=== PATIENT | male | born 1975 | race African-American/Black ===

== ENCOUNTER → 2018-01-04 | Outpatient (CLI) | payer BC ==
[2018-01-04 14:23] LABS: Basophils # (auto) 0 uL; Basophils % (auto) 0.3 % (0.0-2.0); Eosinophils # (auto) 0.1 uL; Eosinophils % (auto) 1.8 % (0.0-7.0); Hematocrit 48.9 % (41.0-53.0); Hemoglobin 15.7 g/dL (13.5-17.5); Lymphocytes # (auto) 2.2 uL; Lymphocytes % (auto) 42.1 % (10.0-50.0); Mean Corpuscular Hemoglobin 29.9 pg (28.0-32.0); Mean Corpuscular Hgb Conc. 32.2 g/dL (32.0-36.0); Mean Corpuscular Volume 92.7 fL (80.0-100.0); Monocytes # (auto) 0.3 uL; Monocytes % (auto) 6.3 % (0.0-12.0); Neutrophils # (auto) 2.6 uL; Neutrophils % (auto) 49.5 % (37.0-80.0); Platelet Count (auto) 151 10^3/uL (140-450); Red Blood Cells 5.27 10^6/uL (4.5-5.90); Red Cell Distribution Width 13.5 % (11.8-14.3); White Blood Cell 5.2 10^3/uL (4.4-10.8)
[2018-01-04 14:32] LABS: Urine Bacteria NONE SEEN /hpf (None Seen); Urine Blood Negative /uL (Negative); Urine Mucus FEW (None Seen); Urine Specific Gravity 1.027 (1.001-1.035); Urine WBC 1 /hpf (0 - 3)
[2018-01-04 15:06] LABS: Potassium 3.7 mmol/L (3.5-5.1)
[2018-01-04 15:18] LABS: Albumin 3.8 g/dL (3.4-5.0); BUN/Creatinine Ratio 10.6; Bilirubin, Total 0.5 mg/dL (0.2-1.0); Total Protein 8.2 g/dL (6.4-8.2)
== END | disposition home or self-care (01) ==
LOC: LAB 13:32
PROVIDERS: ATTEND Family Medicine
DX: Z00.01 Encounter for general adult medical examination with abnormal findings (principal); I10 Essential (primary) hypertension; I25.10 Atherosclerotic heart disease of native coronary artery without angina pectoris; E66.01 Morbid (severe) obesity due to excess calories; R73.09 Other abnormal glucose
CPT/HCPCS: 36415; 80053; 80061; 81001; 83036; 84443; 85025

== ENCOUNTER → 2018-06-01 | Outpatient (CLI) | payer BC ==
[2018-06-01 10:17] LABS: Albumin 3.8 g/dL (3.4-5.0); Bilirubin, Direct 0.2 mg/dL (0-0.2); Bilirubin, Total 0.6 mg/dL (0.2-1.0); Total Protein 7.7 g/dL (6.4-8.2)
== END | disposition home or self-care (01) ==
LOC: LAB 09:05
PROVIDERS: ATTEND Family Medicine
DX: E78.00 Pure hypercholesterolemia, unspecified (principal)
CPT/HCPCS: 36415; 80061; 80076

== ENCOUNTER → 2018-06-16 | Outpatient (CLI) | payer BC ==
[2018-06-17 06:11] LABS: RPR Non Reactive (Non Reactive)
== END | disposition home or self-care (01) ==
LOC: LAB 10:54
PROVIDERS: ATTEND Physician Assistant
DX: Z11.3 Encounter for screening for infections with a predominantly sexual mode of transmission (principal); Z72.89 Other problems related to lifestyle
CPT/HCPCS: 36415; 86592; 86703; 86704; 86706; 86708; 86803; 87340

== ENCOUNTER → 2019-03-14 | Outpatient (CLI) | payer BC ==
[2019-03-14 12:35] LABS: Albumin 3.6 g/dL (3.4-5.0); Calcium 9.1 mg/dL (8.5-10.1); Potassium 3.6 mmol/L (3.5-5.1)
[2019-03-14 12:39] LABS: BUN/Creatinine Ratio 8.8; Bilirubin, Total 0.7 mg/dL (0.2-1.0); Total Protein 7.5 g/dL (6.4-8.2)
== END | disposition home or self-care (01) ==
LOC: LAB 11:56
PROVIDERS: ATTEND Family Medicine
DX: E78.00 Pure hypercholesterolemia, unspecified (principal)
CPT/HCPCS: 36415; 80053; 80061

== ENCOUNTER → 2019-07-13 | Outpatient (CLI) | payer BC ==
[2019-07-13 12:30] LABS: Albumin 3.8 g/dL (3.4-5.0); Bilirubin, Direct 0.2 mg/dL (0-0.2); Bilirubin, Total 0.7 mg/dL (0.2-1.0)
== END | disposition home or self-care (01) ==
LOC: LAB 11:17
PROVIDERS: ATTEND Family Medicine
DX: E78.00 Pure hypercholesterolemia, unspecified (principal); R31.0 Gross hematuria
CPT/HCPCS: 36415; 80061; 80076; 84153

== ENCOUNTER → 2019-11-28 | Outpatient (CLI) | payer BC ==
[2019-11-28 13:40] LABS: Basophils # (auto) 0 10 ^3/uL (0-0.2); Basophils % (auto) 0.4 % (0.0-2.0); Eosinophils # (auto) 0.1 10 ^3/uL (0-0.8); Eosinophils % (auto) 2.3 % (0.0-7.0); Hematocrit 47.3 % (41.0-53.0); Hemoglobin 16.2 g/dL (13.5-17.5); Lymphocytes # (auto) 1.7 10 ^3/uL (0.4-5.4); Lymphocytes % (auto) 38.3 % (10.0-50.0); Mean Corpuscular Hemoglobin 31.2 pg (28.0-32.0); Mean Corpuscular Hgb Conc. 34.2 g/dL (32.0-36.0); Mean Corpuscular Volume 91.4 fL (80.0-100.0); Monocytes # (auto) 0.3 10 ^3/uL (0-1.3); Monocytes % (auto) 7.2 % (0.0-12.0); Neutrophils # (auto) 2.4 10 ^3/uL (1.6-8.6); Neutrophils % (auto) 51.8 % (37.0-80.0); Platelet Count (auto) 168 10^3/uL (140-450); Red Blood Cells 5.18 10^6/uL (4.5-5.90); Red Cell Distribution Width 13.1 % (11.8-14.3); White Blood Cell 4.5 10^3/uL (4.4-10.8)
[2019-11-28 13:42] LABS: Urine Bacteria NONE SEEN /hpf (None Seen); Urine Blood Negative /uL (Negative); Urine Mucus FEW (None Seen); Urine Specific Gravity 1.028 (1.001-1.035); Urine WBC 1 /hpf (0 - 3)
[2019-11-28 14:31] LABS: Albumin 4.2 g/dL (3.4-5.0); Calcium 9.2 mg/dL (8.5-10.1); Potassium 3.7 mmol/L (3.5-5.1)
[2019-11-28 14:38] LABS: BUN/Creatinine Ratio 9.8; Bilirubin, Total 0.8 mg/dL (0.2-1.0); Total Protein 7.9 g/dL (6.4-8.2)
== END | disposition home or self-care (01) ==
LOC: LAB 13:24
PROVIDERS: ATTEND Family Medicine
DX: E78.2 Mixed hyperlipidemia (principal); R79.89 Other specified abnormal findings of blood chemistry; E66.9 Obesity, unspecified
CPT/HCPCS: 36415; 80053; 80061; 81001; 84443; 85025

== ENCOUNTER → 2020-05-15 | Outpatient (CLI) | payer BC | END | disposition home or self-care (01) | LOC: LAB 09:47 | PROVIDERS: ATTEND Nurse Practitioner Family | DX: Z11.3 Encounter for screening for infections with a predominantly sexual mode of transmission (principal); N39.0 Urinary tract infection, site not specified | CPT/HCPCS: 87086 ==

== ENCOUNTER → 2020-06-18 | Outpatient (CLI) | payer BC ==
[2020-06-19 06:06] LABS: RPR Non Reactive (Non Reactive)
== END | disposition home or self-care (01) ==
LOC: LAB 17:27
PROVIDERS: ATTEND Nurse Practitioner Family
DX: Z11.3 Encounter for screening for infections with a predominantly sexual mode of transmission (principal); N39.0 Urinary tract infection, site not specified
CPT/HCPCS: 86592; 86695; 86696

== ENCOUNTER 2020-09-06 09:14 | Emergency (ER) | payer BC ==
[~2020-09-06] VITALS: Ht 177.8 cm; Wt 122.5 kg
[2020-09-06] MEDS ORDERED: ASPirin 81 mg TAB PO ONE (10:15)
[2020-09-06 10:50] LABS: Basophils # (auto) 0 10 ^3/uL (0-0.2); Basophils % (auto) 0.5 % (0.0-2.0); Eosinophils # (auto) 0.1 10 ^3/uL (0-0.8); Eosinophils % (auto) 1.7 % (0.0-7.0); Hematocrit 45.2 % (41.0-53.0); Hemoglobin 15.4 g/dL (13.5-17.5); Lymphocytes # (auto) 1.7 10 ^3/uL (0.4-5.4); Lymphocytes % (auto) 37.9 % (10.0-50.0); Mean Corpuscular Hemoglobin 30.9 pg (28.0-32.0); Mean Corpuscular Volume 91.1 fL (80.0-100.0); Monocytes # (auto) 0.4 10 ^3/uL (0-1.3); Monocytes % (auto) 8.1 % (0.0-12.0); Neutrophils # (auto) 2.3 10 ^3/uL (1.6-8.6); Neutrophils % (auto) 51.8 % (37.0-80.0); Nucleated Red Blood Cells % 0.2 %; Platelet Count (auto) 155 10^3/uL (140-450); Red Blood Cells 4.97 10^6/uL (4.5-5.90); Red Cell Distribution Width 12.9 % (11.8-14.3); White Blood Cell 4.4 10^3/uL (4.4-10.8)
[2020-09-06 10:59] LABS: Albumin 3.9 g/dL (3.4-5.0); Anion Gap 4 (5-15); Blood Urea Nitrogen 9 mg/dL (7-18); Calcium 8.6 mg/dL (8.5-10.1); Carbon Dioxide 27 mmol/L (21-32); Chloride 112 mmol/L (98-107); Glucose 89 mg/dL (74-106); Sodium 143 mmol/L (136-145)
[2020-09-06 11:04] LABS: Alanine Aminotransferase 41 U/L (16-61); Alkaline Phosphatase 75 U/L (45-117); Aspartate Aminotransferase 27 U/L (15-37); Bilirubin, Total 0.7 mg/dL (0.2-1.0); GFR African American 91 mL/min; GFR Non-African American 75 mL/min; Total Protein 7.5 g/dL (6.4-8.2)
[2020-09-06 11:47] VITALS: BP 130/82
== END 2020-09-06 11:49 | disposition home or self-care (01) ==
LOC: ER 09:14
DX: R07.89 Other chest pain (principal); F41.9 Anxiety disorder, unspecified; F17.210 Nicotine dependence, cigarettes, uncomplicated
CPT/HCPCS: 36415; 71046; 80053; 84484; 85025; 85049; 93005

== ENCOUNTER → 2022-10-07 | Outpatient (CLI) | payer BC ==
[2022-10-07 11:40] LABS: Basophils # (auto) 0 10 ^3/uL (0-0.2); Basophils % (auto) 0.3 % (0.0-2.0); Eosinophils # (auto) 0.1 10 ^3/uL (0-0.8); Eosinophils % (auto) 2.1 % (0.0-7.0); Hematocrit 46.5 % (41.0-53.0); Hemoglobin 15.3 g/dL (13.5-17.5); Lymphocytes # (auto) 2.3 10 ^3/uL (0.4-5.4); Lymphocytes % (auto) 44.6 % (10.0-50.0); Mean Corpuscular Hemoglobin 30.9 pg (28.0-32.0); Mean Corpuscular Volume 93.8 fL (80.0-100.0); Monocytes # (auto) 0.5 10 ^3/uL (0-1.3); Monocytes % (auto) 9.1 % (0.0-12.0); Neutrophils # (auto) 2.2 10 ^3/uL (1.6-8.6); Neutrophils % (auto) 43.9 % (37.0-80.0); Nucleated Red Blood Cells % 0.2 %; Red Blood Cells 4.96 10^6/uL (4.5-5.90); Red Cell Distribution Width 13.5 % (11.8-14.3)
[2022-10-07 11:59] LABS: Urine Bacteria FEW /hpf (None Seen); Urine Blood Negative /uL (Negative); Urine Clarity Clear (Clear); Urine Color Yellow (Yellow); Urine Mucus FEW (None Seen); Urine Protein, UAD TRACE (Negative); Urine Urobilinogen Normal (Negative); Urine WBC <1 /hpf (0 - 3)
[2022-10-07 12:20] LABS: Albumin 3.8 g/dL (3.4-5.0); Calcium 8.7 mg/dL (8.5-10.1); Potassium 3.6 mmol/L (3.5-5.1)
[2022-10-07 12:23] LABS: Free T4 (Free Thyroxine) 1.15 ng/dL (0.89-1.76); Prostate Specific Antigen 2.29 ng/mL (0.0-4.0)
[2022-10-07 12:28] LABS: BUN/Creatinine Ratio 10.7 (10.0-20.0); Bilirubin, Total 0.8 mg/dL (0.2-1.0); Total Protein 7.7 g/dL (6.4-8.2)
[2022-10-07 13:25] LABS: Erythrocyte Sedimentation Rate 1 mm/hr (0-20)
== END | disposition home or self-care (01) ==
LOC: LAB 10:26
PROVIDERS: ATTEND Internal Medicine
DX: R07.9 Chest pain, unspecified (principal); N39.0 Urinary tract infection, site not specified; N39.9 Disorder of urinary system, unspecified
CPT/HCPCS: 36415; 80053; 80061; 81001; 84153; 84439; 84443; 85025; 85652

== ENCOUNTER → 2022-10-27 | Outpatient (CLI) | payer BC | END | disposition home or self-care (01) | LOC: XYW 10:03 | PROVIDERS: ATTEND Student in an Organized Health Care Education/Training Program | DX: I35.1 Nonrheumatic aortic (valve) insufficiency (principal); R94.31 Abnormal electrocardiogram [ECG] [EKG] | CPT/HCPCS: 93306 ==

== ENCOUNTER → 2022-11-12 | Outpatient (CLI) | payer BC | END | disposition home or self-care (01) | LOC: LAB 11:06 | PROVIDERS: ATTEND Internal Medicine | DX: M79.10 Myalgia, unspecified site (principal) | CPT/HCPCS: 36415; 82550 ==

== ENCOUNTER → 2022-12-03 | Outpatient (CLI) | payer BC ==
[~2022-12-03] VITALS: Ht 177.8 cm; Wt 127.0 kg
[~2022-12-03] MED LIST: ADENOSINE 107 MG in GIVE UN-DILUTED 0 ML IV ONE
== END | disposition home or self-care (01) ==
LOC: XYW 10:13
PROVIDERS: ATTEND Student in an Organized Health Care Education/Training Program
DX: R94.31 Abnormal electrocardiogram [ECG] [EKG] (principal); E66.01 Morbid (severe) obesity due to excess calories; Z68.41 Body mass index [BMI] 40.0-44.9, adult; Z82.49 Family history of ischemic heart disease and other diseases of the circulatory system
CPT/HCPCS: 78452; 93017; A9500; J0153

== ENCOUNTER 2023-02-15 10:48 | Emergency (ER) | payer BC ==
[~2023-02-15] VITALS: Ht 177.8 cm; Wt 135.0 kg
[2023-02-15 11:41] VITALS: BP 132/73; PULSE 80; RESP 18; TEMP 98; O2SAT 98
[2023-02-15] MEDS ORDERED: MELO7.5T7 PO (13:27)
[2023-02-15] MEDS ORDERED: METH-1181 PO (13:27)
[2023-02-15] MEDS ORDERED: methylPREDNISolone SOD SUCC 125 MG/2 ML VL IM ONE (13:30)
[2023-02-15] MEDS ORDERED: KETOROLAC TROMETH 60MG/2ML VIAL IM ONE (13:30)
== END 2023-02-15 14:47 | disposition home or self-care (01) ==
LOC: ER 10:48
DX: S39.012A Strain of muscle, fascia and tendon of lower back, initial encounter (principal); F17.290 Nicotine dependence, other tobacco product, uncomplicated; F12.10 Cannabis abuse, uncomplicated; X58.XXXA Exposure to other specified factors, initial encounter; Y93.89 Activity, other specified; Y92.89 Other specified places as the place of occurrence of the external cause; Y99.8 Other external cause status
CPT/HCPCS: 96372; 99284; J1885; J2930

== ENCOUNTER 2023-08-04 10:47 | Inpatient (IN) | payer BC ==
[~2023-08-04] VITALS: Ht 177.8 cm; Wt 131.8 kg
[~2023-08-04 10:47] MED LIST changes: -ADENOSINE 107 MG in GIVE UN-DILUTED 0 ML IV ONE; +MELO7.5T7 PO; +METH-1181 PO
[2023-08-04] MEDS: CLINDAMYCIN 600MG IV 50 ML IV ONE (11:37)
[2023-08-04 11:38] LABS: Basophils # (auto) 0 10 ^3/uL (0-0.2); Basophils % (auto) 0.2 % (0.0-2.0); Eosinophils # (auto) 0.2 10 ^3/uL (0-0.8); Eosinophils % (auto) 0.9 % (0.0-7.0); Hematocrit 46.6 % (41.0-53.0); Hemoglobin 15.3 g/dL (13.5-17.5); Lymphocytes # (auto) 2.3 10 ^3/uL (0.4-5.4); Lymphocytes % (auto) 13.2 % (10.0-50.0); Mean Corpuscular Hemoglobin 30.5 pg (28.0-32.0); Mean Corpuscular Hgb Conc. 32.8 g/dL (32.0-36.0); Mean Corpuscular Volume 92.8 fL (80.0-100.0); Monocytes # (auto) 1.3 10 ^3/uL (0-1.3); Monocytes % (auto) 7.7 % (0.0-12.0); Neutrophils # (auto) 13.6 10 ^3/uL (1.6-8.6); Nucleated Red Blood Cells % 0.2 %; Red Blood Cells 5.02 10^6/uL (4.5-5.90); Red Cell Distribution Width 13.4 % (11.8-14.3); White Blood Cell 17.4 10^3/uL (4.4-10.8)
[2023-08-04 11:49] LABS: Chloride 109 mmol/L (98-107); Potassium 3.8 mmol/L (3.5-5.1); Sodium 143 mmol/L (136-145)
[2023-08-04 11:50] LABS: Anion Gap 8 (5-15); Carbon Dioxide 26 mmol/L (20-30)
[2023-08-04 11:51] LABS: Calcium 9.9 mg/dL (8.5-10.1)
[2023-08-04 11:55] LABS: BUN/Creatinine Ratio 8.3 (10.0-20.0); Blood Urea Nitrogen 12 mg/dL (9-23); Glucose 104 mg/dL (74-106)
[2023-08-04 12:10] LABS: Erythrocyte Sedimentation Rate 2 mm/hr (0-20)
[2023-08-04] MEDS ORDERED: METO25TA93 PO (14:41)
[2023-08-04] MEDS ORDERED: hydrALAZINE HCL 20 MG/ML VL IV PRN (14:45)
[2023-08-04] MEDS ORDERED: ACETAMINOPHEN 325 MG TAB PO PRN ×2 (14:45)
[2023-08-04] MEDS: MORPHINE SULFATE INJ 2 MG/ml SYRG IV PRN (17:29)
[2023-08-04] MEDS: ACYCLOVIR 400 MG TAB PO SCH (18:22)
[2023-08-04] MEDS: HYDROcodone-ACET 5/325MG TAB PO PRN (18:27)
[2023-08-04] MEDS: CLINDAMYCIN 600MG IV 50 ML IV SCH (23:10)
[2023-08-04] MEDS: GABAPENTIN 100 MG CAP PO SCH (23:10)
[2023-08-05] VITALS (9 sets, daily range): BP systolic 108–152; BP diastolic 63–80; PULSE 75–127; RESP 18–22; TEMP 98–102.1; O2SAT 91–99
[2023-08-05 06:24] LABS: Basophils # (auto) 0 10 ^3/uL (0-0.2); Basophils % (auto) 0.2 % (0.0-2.0); Eosinophils # (auto) 0.1 10 ^3/uL (0-0.8); Eosinophils % (auto) 0.3 % (0.0-7.0); Hematocrit 44.7 % (41.0-53.0); Hemoglobin 14.3 g/dL (13.5-17.5); Lymphocytes # (auto) 0.7 10 ^3/uL (0.4-5.4); Lymphocytes % (auto) 4.3 % (10.0-50.0); Mean Corpuscular Hemoglobin 30.3 pg (28.0-32.0); Mean Corpuscular Volume 94.6 fL (80.0-100.0); Monocytes # (auto) 1.6 10 ^3/uL (0-1.3); Monocytes % (auto) 9.7 % (0.0-12.0); Neutrophils % (auto) 85.5 % (37.0-80.0); Nucleated Red Blood Cells % 0.1 %; Red Blood Cells 4.72 10^6/uL (4.5-5.90); Red Cell Distribution Width 13.3 % (11.8-14.3); White Blood Cell 16.4 10^3/uL (4.4-10.8)
[2023-08-05 06:48] LABS: Alanine Aminotransferase 32 U/L (7-40); Albumin 3.8 g/dL (3.2-4.8); Alkaline Phosphatase 150 U/L (46-116); Anion Gap 11 (5-15); Aspartate Aminotransferase 29 U/L (13-40); BUN/Creatinine Ratio 8.1 (10.0-20.0); Blood Urea Nitrogen 11 mg/dL (9-23); Calcium 9.5 mg/dL (8.5-10.1); Carbon Dioxide 22 mmol/L (20-30); Chloride 107 mmol/L (98-107); Glucose 119 mg/dL (74-106); Potassium 3.8 mmol/L (3.5-5.1); Sodium 140 mmol/L (136-145)
[2023-08-05 06:49] LABS: Total Protein 6.6 g/dL (5.7-8.2)
[2023-08-05] MEDS: METOPROLOL SUCCINATE XL 50 MG TAB PO SCH (09:56)
[2023-08-05] MEDS ORDERED: PATIENTS OWN MEDICATION (Metoprolol Succinate (Metoprolol Succinate Er) 1 TAB) PO SCH (10:00)
[2023-08-05 11:06] LABS: LDL Cholesterol 127 mg/dL (< 100); Triglycerides 91 mg/dL (< 150)
[2023-08-05 11:08] LABS: Cholesterol 189 mg/dL (< 200); HDL Cholesterol 48 mg/dL (40-59)
[2023-08-05] MEDS: LIDOCAINE 5% TOPICAL PATCH TOP ONE (18:46)
[2023-08-05] MEDS: CYCLOBENZAPRINE HCL 10 MG TAB PO ONE (18:47)
[2023-08-06 01:00] VITALS: BP 113/67; PULSE 94; RESP 20; TEMP 98.3; O2SAT 96
[2023-08-06 04:18] LABS: Urine Bacteria None Seen /hpf (None Seen)
[2023-08-06 04:40] LABS: Urine Blood Negative /uL (Negative); Urine Clarity Clear (Clear); Urine Color Yellow (Yellow); Urine Mucus FEW (None Seen); Urine Protein, UAD TRACE (Negative); Urine Specific Gravity 1.023 (1.001-1.035); Urine Urobilinogen 2 mg/dL (Negative); Urine WBC 2 /hpf (0 - 3); Urine pH 5.5 (5.0-9.0)
[2023-08-06 04:41] VITALS: BP 122/66; PULSE 103; RESP 18; TEMP 98.6; O2SAT 95
[2023-08-06 05:53] LABS: Chloride 107 mmol/L (98-107); Sodium 140 mmol/L (136-145)
[2023-08-06 05:54] LABS: Anion Gap 5 (5-15); Carbon Dioxide 28 mmol/L (20-30)
[2023-08-06 05:55] LABS: Calcium 8.9 mg/dL (8.5-10.1)
[2023-08-06 05:59] LABS: BUN/Creatinine Ratio 12.7 (10.0-20.0); Blood Urea Nitrogen 17 mg/dL (9-23); Glucose 160 mg/dL (74-106)
[2023-08-06] MEDS: CYCLOBENZAPRINE HCL 10 MG TAB PO PRN (06:09)
[2023-08-06 09:00] VITALS: BP 130/69; PULSE 90; RESP 16; TEMP 98.6; O2SAT 95
[2023-08-06 09:19] LABS: Basophils # (auto) 0 10 ^3/uL (0-0.2); Basophils % (auto) 0.2 % (0.0-2.0); Eosinophils # (auto) 0.1 10 ^3/uL (0-0.8); Eosinophils % (auto) 0.7 % (0.0-7.0); Hematocrit 43.8 % (41.0-53.0); Hemoglobin 14.4 g/dL (13.5-17.5); Lymphocytes % (auto) 11.3 % (10.0-50.0); Mean Corpuscular Hemoglobin 30.8 pg (28.0-32.0); Mean Corpuscular Hgb Conc. 32.9 g/dL (32.0-36.0); Mean Corpuscular Volume 93.7 fL (80.0-100.0); Monocytes # (auto) 1.9 10 ^3/uL (0-1.3); Monocytes % (auto) 10.6 % (0.0-12.0); Neutrophils # (auto) 13.9 10 ^3/uL (1.6-8.6); Neutrophils % (auto) 77.2 % (37.0-80.0); Nucleated Red Blood Cells % 0.1 %; Red Blood Cells 4.67 10^6/uL (4.5-5.90); Red Cell Distribution Width 13.4 % (11.8-14.3)
[2023-08-06 12:39] VITALS: BP 134/76; PULSE 95; RESP 20; TEMP 98.6; O2SAT 97
[2023-08-06] MEDS: CEFEPIME 1GM/ 50ML 50 ML IV SCH (15:46)
[2023-08-06 17:00] VITALS: BP 155/97; PULSE 96; RESP 20; TEMP 98.6; O2SAT 97
[2023-08-06] MEDS: LIDOCAINE 5% TOPICAL PATCH TOP SCH (17:35)
[2023-08-06 21:00] VITALS: BP 147/86; PULSE 94; RESP 20; TEMP 97.8; O2SAT 95
[2023-08-07 07:04] LABS: Basophils # (auto) 0 10 ^3/uL (0-0.2); Basophils % (auto) 0.2 % (0.0-2.0); Eosinophils # (auto) 0.2 10 ^3/uL (0-0.8); Eosinophils % (auto) 1.2 % (0.0-7.0); Hematocrit 43.5 % (41.0-53.0); Hemoglobin 14.7 g/dL (13.5-17.5); Lymphocytes # (auto) 2.8 10 ^3/uL (0.4-5.4); Mean Corpuscular Hemoglobin 31.4 pg (28.0-32.0); Mean Corpuscular Hgb Conc. 33.8 g/dL (32.0-36.0); Mean Corpuscular Volume 92.9 fL (80.0-100.0); Monocytes # (auto) 2.2 10 ^3/uL (0-1.3); Monocytes % (auto) 10.9 % (0.0-12.0); Neutrophils # (auto) 14.8 10 ^3/uL (1.6-8.6); Neutrophils % (auto) 73.7 % (37.0-80.0); Nucleated Red Blood Cells % 0.1 %; Red Blood Cells 4.68 10^6/uL (4.5-5.90); Red Cell Distribution Width 13.2 % (11.8-14.3); White Blood Cell 20.1 10^3/uL (4.4-10.8)
[2023-08-07 07:07] LABS: Chloride 104 mmol/L (98-107); Potassium 3.7 mmol/L (3.5-5.1); Sodium 137 mmol/L (136-145)
[2023-08-07 07:08] LABS: Anion Gap 5 (5-15); Calcium 9.1 mg/dL (8.5-10.1); Carbon Dioxide 28 mmol/L (20-30)
[2023-08-07 07:13] LABS: BUN/Creatinine Ratio 10.7 (10.0-20.0); Blood Urea Nitrogen 12 mg/dL (9-23); Glucose 148 mg/dL (74-106)
[2023-08-07 08:30] VITALS: BP 141/70; PULSE 91; RESP 20; TEMP 97.8; O2SAT 95
[2023-08-07] MEDS ORDERED: VANCOMYCIN PER PHARMACY 0 MG IV SCH (09:30)
[2023-08-07] MEDS: ENOXAPARIN SOD 40 MG/0.4 ML SYRINGE SC SCH (10:00)
[2023-08-07] MEDS: VANCOMYCIN 1GM/200ML 200 ML IV SCH (10:12)
[2023-08-07] MEDS: PANTOPRAZOLE 40 MG TAB PO ONE (10:12)
[2023-08-07 13:16] VITALS: BP 132/81; PULSE 97; RESP 20; TEMP 97.9; O2SAT 95
[2023-08-07] MEDS: LORazepam 2MG/ML-1ML VIAL IV ONE (14:47)
[2023-08-07 18:05] VITALS: BP 146/85; PULSE 99; RESP 19; TEMP 97.6; O2SAT 98
[2023-08-07 18:09] VITALS: BP 147/90; PULSE 93; RESP 19; TEMP 97.8; O2SAT 96
[2023-08-07] MEDS: DOCUSATE SOD 100 MG CAP PO ONE (18:51)
[2023-08-07] MEDS: LACTULOSE 20Gm/30ML SOLN PO ONE (18:51)
[2023-08-07 21:00] VITALS: BP 126/76; PULSE 104; RESP 19; TEMP 98.1; O2SAT 94
[2023-08-08] VITALS (7 sets, daily range): BP systolic 134–144; BP diastolic 66–92; PULSE 80–98; RESP 16–19; TEMP 97.4–98.9; O2SAT 93–97
[2023-08-08 05:40] LABS: Chloride 106 mmol/L (98-107); Potassium 3.9 mmol/L (3.5-5.1); Sodium 137 mmol/L (136-145)
[2023-08-08 05:42] LABS: Anion Gap 4 (5-15); Calcium 9.1 mg/dL (8.5-10.1); Carbon Dioxide 27 mmol/L (20-30)
[2023-08-08] MEDS: PANTOPRAZOLE 40 MG TAB PO SCH (05:42)
[2023-08-08 05:47] LABS: BUN/Creatinine Ratio 12.6 (10.0-20.0); Blood Urea Nitrogen 15 mg/dL (9-23); Glucose 162 mg/dL (74-106)
[2023-08-08 06:06] LABS: Basophils # (auto) 0 10 ^3/uL (0-0.2); Basophils % (auto) 0.2 % (0.0-2.0); Eosinophils # (auto) 0.2 10 ^3/uL (0-0.8); Hematocrit 44.8 % (41.0-53.0); Hemoglobin 14.9 g/dL (13.5-17.5); Lymphocytes # (auto) 3.2 10 ^3/uL (0.4-5.4); Lymphocytes % (auto) 15.6 % (10.0-50.0); Mean Corpuscular Hemoglobin 30.9 pg (28.0-32.0); Mean Corpuscular Hgb Conc. 33.4 g/dL (32.0-36.0); Mean Corpuscular Volume 92.6 fL (80.0-100.0); Monocytes # (auto) 1.8 10 ^3/uL (0-1.3); Monocytes % (auto) 8.9 % (0.0-12.0); Neutrophils # (auto) 15.4 10 ^3/uL (1.6-8.6); Neutrophils % (auto) 74.3 % (37.0-80.0); Nucleated Red Blood Cells % 0.1 %; Red Blood Cells 4.83 10^6/uL (4.5-5.90); Red Cell Distribution Width 13.3 % (11.8-14.3); White Blood Cell 20.8 10^3/uL (4.4-10.8)
[2023-08-08] MEDS: DOCUSATE SOD 100 MG CAP PO SCH (09:27)
[2023-08-08] MEDS: LACTULOSE 20Gm/30ML SOLN PO SCH (09:27)
[2023-08-08] MEDS ORDERED: CEFEPIME 2GM/50ML NS 50 ML IV SCH (23:00)
[2023-08-09 01:00] VITALS: BP 148/87; PULSE 95; RESP 16; TEMP 98.5; O2SAT 96
[2023-08-09 05:00] VITALS: BP 129/75; PULSE 93; RESP 18; TEMP 98.1; O2SAT 95
[2023-08-09 06:04] LABS: Basophils # (auto) 0 10 ^3/uL (0-0.2); Basophils % (auto) 0.2 % (0.0-2.0); Eosinophils # (auto) 0.3 10 ^3/uL (0-0.8); Eosinophils % (auto) 1.6 % (0.0-7.0); Hematocrit 43.9 % (41.0-53.0); Hemoglobin 14.8 g/dL (13.5-17.5); Lymphocytes % (auto) 18.8 % (10.0-50.0); Mean Corpuscular Hemoglobin 31.2 pg (28.0-32.0); Mean Corpuscular Hgb Conc. 33.7 g/dL (32.0-36.0); Mean Corpuscular Volume 92.5 fL (80.0-100.0); Monocytes # (auto) 1.9 10 ^3/uL (0-1.3); Monocytes % (auto) 11.5 % (0.0-12.0); Neutrophils # (auto) 10.9 10 ^3/uL (1.6-8.6); Neutrophils % (auto) 67.9 % (37.0-80.0); Red Blood Cells 4.74 10^6/uL (4.5-5.90); Red Cell Distribution Width 13.1 % (11.8-14.3)
[2023-08-09 06:13] LABS: Anion Gap 10 (5-15); Calcium 9.4 mg/dL (8.7-10.4); Carbon Dioxide 24 mmol/L (20-30); Chloride 104 mmol/L (98-107); Potassium 4.2 mmol/L (3.5-5.1); Sodium 138 mmol/L (136-145)
[2023-08-09 06:19] LABS: BUN/Creatinine Ratio 13.9 (10.0-20.0); Blood Urea Nitrogen 14 mg/dL (9-23); Glucose 111 mg/dL (74-106)
[2023-08-09 09:00] VITALS: BP 136/86; PULSE 99; RESP 15; TEMP 98.8; O2SAT 92
[2023-08-09] MEDS: cefTRIAXone 2GM/50ML D5W 50 ML IV SCH (12:52)
[2023-08-09] MEDS: ERGOCALCIFEROL 50,000 UNIT(1.25MG) CAP PO SCH (12:52)
[2023-08-09 13:00] VITALS: BP 156/86; PULSE 93; RESP 18; TEMP 98.2; O2SAT 95
[2023-08-09 16:38] VITALS: BP 145/82; PULSE 99; RESP 14; TEMP 98.5; O2SAT 97
[2023-08-09] MEDS: VANCOMYCIN 1GM/200ML 200 ML IV SCH (20:55)
[2023-08-09 22:00] VITALS: BP 139/84; PULSE 100; RESP 17; TEMP 97.2; O2SAT 98
[2023-08-10] VITALS (7 sets, daily range): BP systolic 115–156; BP diastolic 60–89; PULSE 73–105; RESP 15–20; TEMP 97.6–98.3; O2SAT 93–96
[2023-08-10 06:00] LABS: Basophils # (auto) 0 10 ^3/uL (0-0.2); Basophils % (auto) 0.2 % (0.0-2.0); Eosinophils # (auto) 0.3 10 ^3/uL (0-0.8); Eosinophils % (auto) 2.5 % (0.0-7.0); Hematocrit 44.2 % (41.0-53.0); Lymphocytes # (auto) 3.1 10 ^3/uL (0.4-5.4); Mean Corpuscular Hemoglobin 31.3 pg (28.0-32.0); Mean Corpuscular Volume 92.2 fL (80.0-100.0); Monocytes # (auto) 1.9 10 ^3/uL (0-1.3); Neutrophils # (auto) 8.2 10 ^3/uL (1.6-8.6); Neutrophils % (auto) 60.3 % (37.0-80.0); Nucleated Red Blood Cells % 0.1 %; Red Blood Cells 4.79 10^6/uL (4.5-5.90); Red Cell Distribution Width 13.2 % (11.8-14.3); White Blood Cell 13.5 10^3/uL (4.4-10.8)
[2023-08-10 06:21] LABS: Chloride 104 mmol/L (98-107); Potassium 4.2 mmol/L (3.5-5.1); Sodium 138 mmol/L (136-145)
[2023-08-10 06:23] LABS: Anion Gap 10 (5-15); Blood Urea Nitrogen 16 mg/dL (9-23); Carbon Dioxide 24 mmol/L (20-30); Glucose 113 mg/dL (74-106)
[2023-08-10 06:24] LABS: Calcium 9.6 mg/dL (8.7-10.4)
[2023-08-10 07:41] LABS: BUN/Creatinine Ratio 16.2 (10.0-20.0)
[2023-08-11 00:55] VITALS: BP 124/65; PULSE 91; RESP 21; TEMP 97.1; O2SAT 96
[2023-08-11 05:00] VITALS: BP 144/75; PULSE 94; RESP 18; TEMP 97.2; O2SAT 95
[2023-08-11 06:32] LABS: Basophils # (auto) 0 10 ^3/uL (0-0.2); Basophils % (auto) 0.3 % (0.0-2.0); Eosinophils # (auto) 0.2 10 ^3/uL (0-0.8); Eosinophils % (auto) 1.9 % (0.0-7.0); Hematocrit 42.8 % (41.0-53.0); Hemoglobin 14.4 g/dL (13.5-17.5); Lymphocytes # (auto) 2.9 10 ^3/uL (0.4-5.4); Lymphocytes % (auto) 26.5 % (10.0-50.0); Mean Corpuscular Hemoglobin 31.4 pg (28.0-32.0); Mean Corpuscular Hgb Conc. 33.7 g/dL (32.0-36.0); Mean Corpuscular Volume 93.2 fL (80.0-100.0); Monocytes # (auto) 1.4 10 ^3/uL (0-1.3); Monocytes % (auto) 12.9 % (0.0-12.0); Neutrophils # (auto) 6.5 10 ^3/uL (1.6-8.6); Neutrophils % (auto) 58.4 % (37.0-80.0); Nucleated Red Blood Cells % 0.1 %; Red Blood Cells 4.59 10^6/uL (4.5-5.90); Red Cell Distribution Width 13.2 % (11.8-14.3); White Blood Cell 11.1 10^3/uL (4.4-10.8)
[2023-08-11 06:38] LABS: Anion Gap 9 (5-15); Carbon Dioxide 25 mmol/L (20-30); Chloride 105 mmol/L (98-107); Potassium 4.1 mmol/L (3.5-5.1); Sodium 139 mmol/L (136-145)
[2023-08-11 06:40] LABS: Calcium 9.5 mg/dL (8.7-10.4)
[2023-08-11 06:44] LABS: BUN/Creatinine Ratio 15.2 (10.0-20.0); Blood Urea Nitrogen 16 mg/dL (9-23); Glucose 109 mg/dL (74-106)
[2023-08-11 09:00] VITALS: BP 137/68; PULSE 97; RESP 18; TEMP 97.9; O2SAT 93
[2023-08-11 13:00] VITALS: BP 155/77; PULSE 90; RESP 20; TEMP 98; O2SAT 98
[2023-08-11 17:00] VITALS: BP 146/81; PULSE 94; RESP 20; TEMP 98; O2SAT 95
[2023-08-11 21:00] VITALS: BP 156/72; PULSE 101; RESP 18; TEMP 98.2; O2SAT 97
[2023-08-11] MEDS: cefTRIAXone 2GM/50ML D5W 50 ML IV SCH (21:05)
[2023-08-11] MEDS: DOXYCYCLINE 100 MG TAB/CAP PO SCH (21:05)
[2023-08-12 01:00] VITALS: BP 128/80; PULSE 96; RESP 18; TEMP 98.6; O2SAT 98
[2023-08-12 05:00] VITALS: BP 147/81; PULSE 90; RESP 19; TEMP 90; O2SAT 98
[2023-08-12 09:00] VITALS: BP 118/66; PULSE 94; RESP 20; TEMP 97.8; O2SAT 91
[2023-08-12 09:07] LABS: Basophils # (auto) 0 10 ^3/uL (0-0.2); Basophils % (auto) 0.3 % (0.0-2.0); Eosinophils # (auto) 0.2 10 ^3/uL (0-0.8); Eosinophils % (auto) 1.6 % (0.0-7.0); Hematocrit 43.8 % (41.0-53.0); Hemoglobin 14.5 g/dL (13.5-17.5); Lymphocytes # (auto) 2.8 10 ^3/uL (0.4-5.4); Lymphocytes % (auto) 28.7 % (10.0-50.0); Mean Corpuscular Hgb Conc. 33.2 g/dL (32.0-36.0); Mean Corpuscular Volume 93.2 fL (80.0-100.0); Monocytes # (auto) 1.3 10 ^3/uL (0-1.3); Neutrophils # (auto) 5.5 10 ^3/uL (1.6-8.6); Neutrophils % (auto) 56.4 % (37.0-80.0); Nucleated Red Blood Cells % 0.1 %; Red Blood Cells 4.69 10^6/uL (4.5-5.90); Red Cell Distribution Width 13.1 % (11.8-14.3); White Blood Cell 9.7 10^3/uL (4.4-10.8)
[2023-08-12 09:27] LABS: Anion Gap 2 (5-15); Carbon Dioxide 28 mmol/L (20-30); Chloride 107 mmol/L (98-107); Potassium 4.2 mmol/L (3.5-5.1); Sodium 137 mmol/L (136-145)
[2023-08-12 09:28] LABS: Calcium 9.4 mg/dL (8.5-10.1)
[2023-08-12 09:33] LABS: BUN/Creatinine Ratio 16.8 (10.0-20.0); Blood Urea Nitrogen 17 mg/dL (9-23); Glucose 110 mg/dL (74-106)
[2023-08-12 12:36] VITALS: BP 107/65; PULSE 95; RESP 20; TEMP 98.6; O2SAT 92
[2023-08-12 16:57] VITALS: BP 127/53; PULSE 95; RESP 20; TEMP 98.6; O2SAT 95
[2023-08-12 21:00] VITALS: BP 125/68; PULSE 98; RESP 18; TEMP 97.8; O2SAT 96
[2023-08-13 01:00] VITALS: BP 112/59; PULSE 102; RESP 18; TEMP 98.4; O2SAT 95
[2023-08-13 05:00] VITALS: BP 146/75; PULSE 98; RESP 18; TEMP 98.7; O2SAT 95
[2023-08-13 07:02] LABS: Anion Gap 7 (5-15); Calcium 9.6 mg/dL (8.5-10.1); Carbon Dioxide 24 mmol/L (20-30); Chloride 108 mmol/L (98-107); Potassium 3.9 mmol/L (3.5-5.1); Sodium 139 mmol/L (136-145)
[2023-08-13 07:08] LABS: BUN/Creatinine Ratio 15.4 (10.0-20.0); Blood Urea Nitrogen 16 mg/dL (9-23); Glucose 99 mg/dL (74-106)
[2023-08-13 07:27] LABS: Basophils # (auto) 0 10 ^3/uL (0-0.2); Basophils % (auto) 0.3 % (0.0-2.0); Eosinophils # (auto) 0.2 10 ^3/uL (0-0.8); Eosinophils % (auto) 1.9 % (0.0-7.0); Hematocrit 41.4 % (41.0-53.0); Hemoglobin 14.1 g/dL (13.5-17.5); Lymphocytes # (auto) 2.9 10 ^3/uL (0.4-5.4); Lymphocytes % (auto) 33.2 % (10.0-50.0); Mean Corpuscular Hemoglobin 31.7 pg (28.0-32.0); Mean Corpuscular Hgb Conc. 34.1 g/dL (32.0-36.0); Monocytes # (auto) 0.9 10 ^3/uL (0-1.3); Neutrophils # (auto) 4.8 10 ^3/uL (1.6-8.6); Neutrophils % (auto) 54.6 % (37.0-80.0); Nucleated Red Blood Cells % 0.1 %; Red Blood Cells 4.45 10^6/uL (4.5-5.90); Red Cell Distribution Width 13.1 % (11.8-14.3); White Blood Cell 8.8 10^3/uL (4.4-10.8)
[2023-08-13 08:30] VITALS: BP 124/74; PULSE 80; RESP 20; TEMP 98.6; O2SAT 96
[2023-08-13 12:30] VITALS: BP 128/71; PULSE 87; RESP 20; TEMP 98.6; O2SAT 97
[2023-08-13 16:30] VITALS: BP 128/71; PULSE 95; RESP 20; TEMP 98.1; O2SAT 95
[2023-08-13 21:00] VITALS: BP 84/58; PULSE 95; RESP 20; TEMP 98.1; O2SAT 94
[2023-08-14 04:58] VITALS: BP 122/65; PULSE 88; RESP 24; TEMP 98.4; O2SAT 94
[2023-08-14 09:00] VITALS: BP 138/74; PULSE 96; RESP 17; TEMP 98; O2SAT 100
[2023-08-14 11:09] LABS: Erythrocyte Sedimentation Rate 4 mm/hr (0-20)
[2023-08-14] MEDS: MORPHINE SULFATE INJ 2 MG/ml SYRG IV PRN (11:18)
[2023-08-14 13:00] VITALS: BP 147/78; PULSE 103; RESP 17; TEMP 98; O2SAT 96
[2023-08-14] MEDS: CARISOPRODOL 350 MG TAB PO SCH (14:02)
[2023-08-14 17:00] VITALS: BP 115/65; PULSE 43; RESP 17; TEMP 98; O2SAT 95
[2023-08-14 20:00] VITALS: PULSE 105; RESP 16; O2SAT 97
[2023-08-14 21:00] VITALS: BP 133/79; PULSE 105; RESP 16; TEMP 98.1; O2SAT 97
[2023-08-15] VITALS (7 sets, daily range): BP systolic 105–158; BP diastolic 57–91; PULSE 73–105; RESP 16–20; TEMP 97.4–99.3; O2SAT 92–97
[2023-08-16 01:00] VITALS: BP 116/71; PULSE 100; RESP 18; TEMP 98.7; O2SAT 96
[2023-08-16 05:00] VITALS: BP 123/67; PULSE 100; RESP 17; TEMP 98; O2SAT 95
[2023-08-16 07:00] LABS: Basophils # (auto) 0 10 ^3/uL (0-0.2); Basophils % (auto) 0.5 % (0.0-2.0); Eosinophils # (auto) 0.1 10 ^3/uL (0-0.8); Hematocrit 42.4 % (41.0-53.0); Hemoglobin 14.5 g/dL (13.5-17.5); Lymphocytes # (auto) 2.9 10 ^3/uL (0.4-5.4); Lymphocytes % (auto) 41.9 % (10.0-50.0); Mean Corpuscular Hgb Conc. 34.2 g/dL (32.0-36.0); Mean Corpuscular Volume 93.4 fL (80.0-100.0); Monocytes # (auto) 0.6 10 ^3/uL (0-1.3); Monocytes % (auto) 9.1 % (0.0-12.0); Neutrophils # (auto) 3.2 10 ^3/uL (1.6-8.6); Neutrophils % (auto) 46.5 % (37.0-80.0); Nucleated Red Blood Cells % 0.1 %; Red Blood Cells 4.54 10^6/uL (4.5-5.90); Red Cell Distribution Width 13.6 % (11.8-14.3); White Blood Cell 6.9 10^3/uL (4.4-10.8)
[2023-08-16 07:23] LABS: Alanine Aminotransferase 57 U/L (7-40); Albumin 3.8 g/dL (3.2-4.8); Alkaline Phosphatase 61 U/L (46-116); Anion Gap 8 (5-15); Aspartate Aminotransferase 24 U/L (13-40); BUN/Creatinine Ratio 15.5 (10.0-20.0); Bilirubin, Total 0.7 mg/dL (0.2-1.0); Blood Urea Nitrogen 16 mg/dL (9-23); Calcium 9.8 mg/dL (8.7-10.4); Carbon Dioxide 22 mmol/L (20-30); Chloride 107 mmol/L (98-107); Glucose 102 mg/dL (74-106); Potassium 3.9 mmol/L (3.5-5.1); Sodium 137 mmol/L (136-145); Total Protein 7.2 g/dL (5.7-8.2)
[2023-08-16 21:00] VITALS: BP 123/67; PULSE 107; RESP 20; TEMP 98.3; O2SAT 95
[2023-08-16] MEDS: HYDROcodone-ACET 5/325MG TAB PO PRN (21:08)
[2023-08-17] VITALS (7 sets, daily range): BP systolic 104–140; BP diastolic 64–79; PULSE 88–104; RESP 18–20; TEMP 98.2–98.9; O2SAT 92–98
[2023-08-17 06:40] LABS: Basophils # (auto) 0 10 ^3/uL (0-0.2); Basophils % (auto) 0.6 % (0.0-2.0); Eosinophils # (auto) 0.1 10 ^3/uL (0-0.8); Eosinophils % (auto) 2.3 % (0.0-7.0); Hematocrit 41.3 % (41.0-53.0); Lymphocytes # (auto) 2.6 10 ^3/uL (0.4-5.4); Lymphocytes % (auto) 41.4 % (10.0-50.0); Mean Corpuscular Hemoglobin 31.8 pg (28.0-32.0); Mean Corpuscular Volume 93.6 fL (80.0-100.0); Monocytes # (auto) 0.6 10 ^3/uL (0-1.3); Monocytes % (auto) 9.7 % (0.0-12.0); Neutrophils # (auto) 2.9 10 ^3/uL (1.6-8.6); Nucleated Red Blood Cells % 0.3 %; Red Blood Cells 4.42 10^6/uL (4.5-5.90); Red Cell Distribution Width 13.8 % (11.8-14.3); White Blood Cell 6.2 10^3/uL (4.4-10.8)
[2023-08-17 06:53] LABS: Anion Gap 8 (5-15); Carbon Dioxide 24 mmol/L (20-30); Chloride 106 mmol/L (98-107); Potassium 3.7 mmol/L (3.5-5.1); Sodium 138 mmol/L (136-145)
[2023-08-17 06:54] LABS: Calcium 9.7 mg/dL (8.5-10.1)
[2023-08-17 06:59] LABS: Blood Urea Nitrogen 17 mg/dL (9-23); Glucose 89 mg/dL (74-106)
[2023-08-18] VITALS (7 sets, daily range): BP systolic 105–130; BP diastolic 55–72; PULSE 75–111; RESP 17–20; TEMP 97.9–99.1; O2SAT 92–97
[2023-08-18 05:55] LABS: Basophils # (auto) 0 10 ^3/uL (0-0.2); Basophils % (auto) 0.6 % (0.0-2.0); Eosinophils # (auto) 0.1 10 ^3/uL (0-0.8); Eosinophils % (auto) 2.5 % (0.0-7.0); Hematocrit 40.4 % (41.0-53.0); Hemoglobin 13.5 g/dL (13.5-17.5); Lymphocytes # (auto) 2.6 10 ^3/uL (0.4-5.4); Lymphocytes % (auto) 46.2 % (10.0-50.0); Mean Corpuscular Hemoglobin 31.3 pg (28.0-32.0); Mean Corpuscular Hgb Conc. 33.3 g/dL (32.0-36.0); Monocytes # (auto) 0.7 10 ^3/uL (0-1.3); Monocytes % (auto) 11.6 % (0.0-12.0); Neutrophils # (auto) 2.2 10 ^3/uL (1.6-8.6); Neutrophils % (auto) 39.1 % (37.0-80.0); Nucleated Red Blood Cells % 0.3 %; White Blood Cell 5.6 10^3/uL (4.4-10.8)
[2023-08-18 06:21] LABS: Alanine Aminotransferase 51 U/L (7-40); Alkaline Phosphatase 57 U/L (46-116); Anion Gap 5 (5-15); BUN/Creatinine Ratio 16.1 (10.0-20.0); Blood Urea Nitrogen 15 mg/dL (9-23); Calcium 9.6 mg/dL (8.5-10.1); Carbon Dioxide 26 mmol/L (20-30); Chloride 107 mmol/L (98-107); Glucose 98 mg/dL (74-106); Potassium 3.7 mmol/L (3.5-5.1); Sodium 138 mmol/L (136-145)
[2023-08-18 06:22] LABS: Albumin 3.7 g/dL (3.2-4.8); Aspartate Aminotransferase 22 U/L (13-40)
[2023-08-18 06:23] LABS: Bilirubin, Total 0.7 mg/dL (0.2-1.0); Total Protein 6.7 g/dL (5.7-8.2)
[2023-08-19 05:00] VITALS: BP 115/62; PULSE 92; RESP 20; TEMP 98.6; O2SAT 97
[2023-08-19 08:35] VITALS: BP 130/71; PULSE 88; RESP 20; TEMP 98.5; O2SAT 96
[2023-08-19 12:40] VITALS: BP 126/64; PULSE 91; RESP 20; TEMP 98.8; O2SAT 97
[2023-08-19 16:30] VITALS: BP 130/97; PULSE 102; RESP 20; TEMP 98.3; O2SAT 97
[2023-08-19 20:00] VITALS: PULSE 99
[2023-08-19 21:00] VITALS: BP 116/70; PULSE 99; RESP 19; TEMP 98.8; O2SAT 98
[2023-08-20] VITALS (9 sets, daily range): BP systolic 107–127; BP diastolic 67–81; PULSE 74–102; RESP 18–20; TEMP 97.8–98.6; O2SAT 90–100
[2023-08-20] MEDS ORDERED: BUPIVACAINE HCL 50 ML ONE (18:37)
[2023-08-20] MEDS ORDERED: fentaNYL CITRATE 100 MCG/2 ML VL ONE (18:39)
[2023-08-20] MEDS ORDERED: MEPERIDINE HCL (50 MG/ML) 1 ML VIAL ONE (18:40)
[2023-08-20] MEDS ORDERED: PROPOFOL 10 MG/ML 20 ML IV ONE (18:40)
[2023-08-20] MEDS ORDERED: HYDROmorphone HCL 2 MG/ML VL/or syr IV PRN (20:00)
[2023-08-20] MEDS ORDERED: MEPERIDINE HCL (25 MG/ML) 1ML VIAL IV PRN (20:00)
[2023-08-20] MEDS ORDERED: ONDANSETRON HCL 4 MG/2 ML VIAL IV ONE (20:00)
[2023-08-21 01:00] VITALS: BP 113/76; PULSE 107; RESP 20; TEMP 98.1; O2SAT 90
[2023-08-21 05:00] VITALS: BP 136/77; PULSE 95; RESP 18; TEMP 97.8; O2SAT 94
[2023-08-21 07:27] LABS: Chloride 106 mmol/L (98-107); Potassium 4.7 mmol/L (3.5-5.1); Sodium 136 mmol/L (136-145)
[2023-08-21 07:28] LABS: Anion Gap 7 (5-15); Basophils # (auto) 0 10 ^3/uL (0-0.2); Basophils % (auto) 0.3 % (0.0-2.0); Calcium 9.8 mg/dL (8.5-10.1); Carbon Dioxide 23 mmol/L (20-30); Eosinophils # (auto) 0 10 ^3/uL (0-0.8); Hematocrit 41.1 % (41.0-53.0); Hemoglobin 13.9 g/dL (13.5-17.5); Lymphocytes # (auto) 1.1 10 ^3/uL (0.4-5.4); Lymphocytes % (auto) 13.6 % (10.0-50.0); Mean Corpuscular Hemoglobin 31.9 pg (28.0-32.0); Mean Corpuscular Hgb Conc. 33.9 g/dL (32.0-36.0); Mean Corpuscular Volume 94.2 fL (80.0-100.0); Monocytes # (auto) 0.2 10 ^3/uL (0-1.3); Monocytes % (auto) 3.1 % (0.0-12.0); Neutrophils # (auto) 6.5 10 ^3/uL (1.6-8.6); Nucleated Red Blood Cells % 0.1 %; Red Blood Cells 4.36 10^6/uL (4.5-5.90); Red Cell Distribution Width 13.7 % (11.8-14.3); White Blood Cell 7.8 10^3/uL (4.4-10.8)
[2023-08-21 07:33] LABS: BUN/Creatinine Ratio 14.4 (10.0-20.0); Blood Urea Nitrogen 15 mg/dL (9-23); Glucose 105 mg/dL (74-106)
[2023-08-21 08:00] VITALS: PULSE 92; RESP 18; O2SAT 100
[2023-08-21 09:18] VITALS: BP 131/70; PULSE 92; RESP 18; TEMP 97.8; O2SAT 100
[2023-08-21] MEDS: DOXYCYCLINE 100 MG TAB/CAP PO SCH (16:05)
[2023-08-21 17:05] VITALS: BP 109/58; PULSE 93; RESP 16; TEMP 97.8; O2SAT 96
== END 2023-08-21 18:00 | DRG 854 ==
LOC: ER 10:47 → OVERFLOW 14:41 → CENTRAL 22:32
PROVIDERS: ADMIT Internal Medicine; ATTEND Internal Medicine
PROC: 0QBM0ZZ Excision of Left Tarsal, Open Approach (ICD-10-PCS; principal; 2023-08-20 18:51)
DX: A40.1 Sepsis due to streptococcus, group B (principal); L02.416 Cutaneous abscess of left lower limb; L03.116 Cellulitis of left lower limb; N17.9 Acute kidney failure, unspecified; Z68.41 Body mass index [BMI] 40.0-44.9, adult; E66.01 Morbid (severe) obesity due to excess calories; N18.32 Chronic kidney disease, stage 3b; B02.9 Zoster without complications; I12.9 Hypertensive chronic kidney disease with stage 1 through stage 4 chronic kidney disease, or unspecified chronic kidney disease; M48.07 Spinal stenosis, lumbosacral region; F17.210 Nicotine dependence, cigarettes, uncomplicated; E55.9 Vitamin D deficiency, unspecified; Z82.49 Family history of ischemic heart disease and other diseases of the circulatory system; Z79.899 Other long term (current) drug therapy
CPT/HCPCS: 36415; 72148; 73700; 73721; 80048; 80053; 80061; 80202; 81001; 82306; 82550; 83036; 83735; 84439; 84443; 84550; 85025; 85652; 86141; 86703; 87040; 87070; 87075; 87077; 87186; 87205; 93306; 97110; 97116; 97163; 97530; G0378; J2704; J3490

== ENCOUNTER 2023-09-04 18:03 | Inpatient (IN) | payer BC ==
[~2023-09-04] VITALS: Ht 177.8 cm; Wt 133.0 kg
[~2023-09-04 18:03] MED LIST changes: +METO25TA93 PO
[2023-09-04 19:48] LABS: Chloride 109 mmol/L (98-107); Sodium 140 mmol/L (136-145)
[2023-09-04 19:49] LABS: Anion Gap 8 (5-15); Carbon Dioxide 23 mmol/L (20-30)
[2023-09-04 19:50] LABS: Calcium 9.9 mg/dL (8.7-10.4)
[2023-09-04 19:54] LABS: BUN/Creatinine Ratio 7.8 (10.0-20.0); Blood Urea Nitrogen 8 mg/dL (9-23); Glucose 119 mg/dL (74-106)
[2023-09-04 20:05] LABS: Basophils # (auto) 0 10 ^3/uL (0-0.2); Basophils % (auto) 0.6 % (0.0-2.0); Eosinophils # (auto) 0.2 10 ^3/uL (0-0.8); Eosinophils % (auto) 5.1 % (0.0-7.0); Hematocrit 39.9 % (41.0-53.0); Hemoglobin 13.4 g/dL (13.5-17.5); Lymphocytes # (auto) 2.2 10 ^3/uL (0.4-5.4); Lymphocytes % (auto) 45.3 % (10.0-50.0); Mean Corpuscular Hemoglobin 31.9 pg (28.0-32.0); Mean Corpuscular Hgb Conc. 33.4 g/dL (32.0-36.0); Mean Corpuscular Volume 95.5 fL (80.0-100.0); Monocytes # (auto) 0.4 10 ^3/uL (0-1.3); Monocytes % (auto) 9.1 % (0.0-12.0); Neutrophils # (auto) 1.9 10 ^3/uL (1.6-8.6); Neutrophils % (auto) 39.9 % (37.0-80.0); Nucleated Red Blood Cells % 0.1 %; Red Blood Cells 4.18 10^6/uL (4.5-5.90); Red Cell Distribution Width 13.7 % (11.8-14.3); White Blood Cell 4.8 10^3/uL (4.4-10.8)
[2023-09-04] MEDS ORDERED: ACETAMINOPHEN 325 MG TAB PO PRN (23:15)
[2023-09-04] MEDS ORDERED: ONDANSETRON HCL 4 MG/2 ML VIAL IV PRN (23:15)
[2023-09-04] MEDS: HYDROcodone-ACET 5/325MG TAB PO PRN (23:58)
[2023-09-05] VITALS (9 sets, daily range): BP systolic 110–160; BP diastolic 63–92; PULSE 54–96; RESP 14–19; TEMP 97.5–98.5; O2SAT 94–99
[2023-09-05] MEDS: hydrALAZINE HCL 20 MG/ML VL IV PRN
[2023-09-05] MEDS ORDERED: NITROGLYCERIN 0.4 MG SL TAB SL PRN
[2023-09-05] MEDS ORDERED: MORPHINE SULFATE INJ 2 MG/ml SYRG IV PRN
[2023-09-05] MEDS ORDERED: DOXY100C4 PO (05:12)
[2023-09-05] MEDS ORDERED: LIDO4PAD8 EX (05:12)
[2023-09-05] MEDS ORDERED: ERGO1CAP23 PO (05:12)
[2023-09-05] MEDS ORDERED: GABA-1308 PO (05:12)
[2023-09-05] MEDS ORDERED: LACT10SO3 PO (05:12)
[2023-09-05] MEDS ORDERED: DOCU-94 PO (05:12)
[2023-09-05] MEDS ORDERED: PANT40T PO (05:12)
[2023-09-05] MEDS ORDERED: CHOL1TAB30 PO (05:12)
[2023-09-05] MEDS ORDERED: HYDR-4798 PO (05:12)
[2023-09-05] MEDS ORDERED: ENO40SY SUBCUT (05:12)
[2023-09-05 06:14] LABS: Basophils # (auto) 0 10 ^3/uL (0-0.2); Basophils % (auto) 0.3 % (0.0-2.0); Eosinophils # (auto) 0.2 10 ^3/uL (0-0.8); Eosinophils % (auto) 4.4 % (0.0-7.0); Hematocrit 38.8 % (41.0-53.0); Hemoglobin 12.8 g/dL (13.5-17.5); Lymphocytes # (auto) 1.9 10 ^3/uL (0.4-5.4); Lymphocytes % (auto) 43.8 % (10.0-50.0); Mean Corpuscular Hemoglobin 31.6 pg (28.0-32.0); Mean Corpuscular Hgb Conc. 33.1 g/dL (32.0-36.0); Mean Corpuscular Volume 95.7 fL (80.0-100.0); Monocytes # (auto) 0.5 10 ^3/uL (0-1.3); Monocytes % (auto) 11.1 % (0.0-12.0); Neutrophils # (auto) 1.8 10 ^3/uL (1.6-8.6); Neutrophils % (auto) 40.4 % (37.0-80.0); Nucleated Red Blood Cells % 0.2 %; Red Blood Cells 4.05 10^6/uL (4.5-5.90); White Blood Cell 4.4 10^3/uL (4.4-10.8)
[2023-09-05] MEDS: SODIUM CHLOR 0.9% PF (SALINE LOCK) 10ML VIAL/SYR IV SCH (06:20)
[2023-09-05 06:36] LABS: Alanine Aminotransferase 81 U/L (7-40); Alkaline Phosphatase 75 U/L (46-116); Anion Gap 8 (5-15); Calcium 9.7 mg/dL (8.7-10.4); Carbon Dioxide 24 mmol/L (20-30); Chloride 109 mmol/L (98-107); Potassium 3.7 mmol/L (3.5-5.1); Sodium 141 mmol/L (136-145)
[2023-09-05 06:37] LABS: Aspartate Aminotransferase 26 U/L (13-40); BUN/Creatinine Ratio 11.5 (10.0-20.0); Blood Urea Nitrogen 11 mg/dL (9-23); Glucose 91 mg/dL (74-106)
[2023-09-05 06:38] LABS: Albumin 3.8 g/dL (3.2-4.8)
[2023-09-05 06:39] LABS: Bilirubin, Total 0.4 mg/dL (0.2-1.0); Total Protein 6.7 g/dL (5.7-8.2)
[2023-09-05] MEDS: ENOXAPARIN SOD 40 MG/0.4 ML SYRINGE SC SCH (10:24)
[2023-09-05 14:39] LABS: Erythrocyte Sedimentation Rate 2 mm/hr (0-20)
[2023-09-05] MEDS ORDERED: LACTULOSE 20Gm/30ML SOLN PO PRN (15:15)
[2023-09-05 16:09] LABS: Urine Bacteria None Seen /hpf (None Seen)
[2023-09-05 16:15] LABS: Urine Blood Negative /uL (Negative); Urine Clarity Clear (Clear); Urine Color Light-Yellow (Yellow); Urine Protein, UAD Negative (Negative); Urine Specific Gravity 1.019 (1.001-1.035); Urine Urobilinogen Normal (Negative); Urine WBC <1 /hpf (0 - 3)
[2023-09-05] MEDS ORDERED: VANCOMYCIN PER PHARMACY 0 MG IV SCH (17:00)
[2023-09-05] MEDS: METOPROLOL SUCCINATE XL 50 MG TAB PO ONE (17:17)
[2023-09-05] MEDS: VANCOMYCIN 1GM/200ML 200 ML IV ONE (18:22)
[2023-09-05] MEDS: cefTRIAXone 1GM/50ML D5W 50 ML IV ONE (19:47)
[2023-09-06] VITALS (8 sets, daily range): BP systolic 112–140; BP diastolic 54–75; PULSE 65–89; RESP 14–18; TEMP 97.9–98.5; O2SAT 95–98
[2023-09-06] MEDS: VANCOMYCIN 1GM/200ML 200 ML IV SCH (02:15)
[2023-09-06] MEDS: DOCUSATE SOD 100 MG CAP PO PRN (03:43)
[2023-09-06 05:29] LABS: Alanine Aminotransferase 76 U/L (7-40); Albumin 3.7 g/dL (3.2-4.8); Alkaline Phosphatase 62 U/L (46-116); Anion Gap 7 (5-15); Aspartate Aminotransferase 27 U/L (13-40); BUN/Creatinine Ratio 8.1 (10.0-20.0); Bilirubin, Total 0.5 mg/dL (0.2-1.0); Blood Urea Nitrogen 8 mg/dL (9-23); Calcium 9.3 mg/dL (8.5-10.1); Carbon Dioxide 23 mmol/L (20-30); Chloride 110 mmol/L (98-107); Glucose 94 mg/dL (74-106); Sodium 140 mmol/L (136-145); Total Protein 6.2 g/dL (5.7-8.2)
[2023-09-06] MEDS: METOPROLOL SUCCINATE XL 50 MG TAB PO SCH (08:32)
[2023-09-06] MEDS: cefTRIAXone 1GM/50ML D5W 50 ML IV SCH (08:35)
[2023-09-07] VITALS (8 sets, daily range): BP systolic 120–149; BP diastolic 65–83; PULSE 68–91; RESP 17–21; TEMP 97.5–98.7; O2SAT 94–99
[2023-09-07 18:47] LABS: Basophils # (auto) 0 10 ^3/uL (0-0.2); Basophils % (auto) 0.5 % (0.0-2.0); Eosinophils # (auto) 0.1 10 ^3/uL (0-0.8); Eosinophils % (auto) 3.2 % (0.0-7.0); Hematocrit 38.3 % (41.0-53.0); Hemoglobin 12.8 g/dL (13.5-17.5); Lymphocytes # (auto) 1.7 10 ^3/uL (0.4-5.4); Lymphocytes % (auto) 42.1 % (10.0-50.0); Mean Corpuscular Hemoglobin 31.8 pg (28.0-32.0); Mean Corpuscular Hgb Conc. 33.5 g/dL (32.0-36.0); Mean Corpuscular Volume 95.1 fL (80.0-100.0); Monocytes # (auto) 0.4 10 ^3/uL (0-1.3); Monocytes % (auto) 10.2 % (0.0-12.0); Neutrophils # (auto) 1.8 10 ^3/uL (1.6-8.6); Nucleated Red Blood Cells % 0.1 %; Red Blood Cells 4.03 10^6/uL (4.5-5.90); Red Cell Distribution Width 13.4 % (11.8-14.3)
[2023-09-07 19:09] LABS: Alanine Aminotransferase 83 U/L (7-40); Albumin 3.8 g/dL (3.2-4.8); Alkaline Phosphatase 59 U/L (46-116); Anion Gap 10 (5-15); Bilirubin, Total 0.4 mg/dL (0.2-1.0); Blood Urea Nitrogen 8 mg/dL (9-23); Calcium 9.6 mg/dL (8.7-10.4); Carbon Dioxide 21 mmol/L (20-30); Chloride 109 mmol/L (98-107); Glucose 98 mg/dL (74-106); Potassium 3.9 mmol/L (3.5-5.1); Sodium 140 mmol/L (136-145); Total Protein 6.6 g/dL (5.7-8.2)
[2023-09-07 19:44] LABS: Aspartate Aminotransferase 27 U/L (13-40)
[2023-09-07 20:09] LABS: CRP High Sensitivity < 0.02 mg/dL (<1.0)
[2023-09-08 05:00] VITALS: BP 125/84; PULSE 96; RESP 18; TEMP 98.1; O2SAT 95
[2023-09-08 08:00] VITALS: BP 130/68; PULSE 77; PULSE 84; RESP 18; TEMP 98.3; O2SAT 98
[2023-09-08 12:00] VITALS: BP 122/69; PULSE 76; RESP 18; TEMP 98.2; O2SAT 97
[2023-09-08] MEDS: VANCOMYCIN 1GM/200ML 200 ML IV SCH (15:39)
[2023-09-08 17:00] VITALS: BP 119/54; PULSE 82; RESP 18; TEMP 98.8; O2SAT 97
[2023-09-08 20:00] VITALS: PULSE 101
[2023-09-08 21:00] VITALS: BP 137/76; PULSE 96; RESP 22; TEMP 98.5; O2SAT 98
[2023-09-09] VITALS (8 sets, daily range): BP systolic 115–159; BP diastolic 66–90; PULSE 77–113; RESP 12–20; TEMP 97.7–98.7; O2SAT 92–98
[2023-09-09] MEDS ORDERED: LORazepam 2MG/ML-1ML VIAL IV PRN (00:15)
[2023-09-09 06:12] LABS: Chloride 109 mmol/L (98-107); Potassium 3.8 mmol/L (3.5-5.1); Sodium 141 mmol/L (136-145)
[2023-09-09 06:13] LABS: Anion Gap 9 (5-15); Carbon Dioxide 23 mmol/L (20-30)
[2023-09-09 06:14] LABS: Calcium 9.5 mg/dL (8.7-10.4)
[2023-09-09 06:17] LABS: Basophils # (auto) 0 10 ^3/uL (0-0.2); Basophils % (auto) 0.7 % (0.0-2.0); Eosinophils # (auto) 0.1 10 ^3/uL (0-0.8); Eosinophils % (auto) 2.6 % (0.0-7.0); Hematocrit 38.9 % (41.0-53.0); Hemoglobin 13.1 g/dL (13.5-17.5); Lymphocytes # (auto) 2.2 10 ^3/uL (0.4-5.4); Mean Corpuscular Hemoglobin 31.7 pg (28.0-32.0); Mean Corpuscular Hgb Conc. 33.7 g/dL (32.0-36.0); Mean Corpuscular Volume 94.2 fL (80.0-100.0); Monocytes # (auto) 0.5 10 ^3/uL (0-1.3); Monocytes % (auto) 9.3 % (0.0-12.0); Neutrophils # (auto) 2.3 10 ^3/uL (1.6-8.6); Neutrophils % (auto) 44.4 % (37.0-80.0); Nucleated Red Blood Cells % 0.1 %; Red Blood Cells 4.13 10^6/uL (4.5-5.90); Red Cell Distribution Width 13.5 % (11.8-14.3); White Blood Cell 5.1 10^3/uL (4.4-10.8)
[2023-09-09 06:18] LABS: BUN/Creatinine Ratio 7.9 (10.0-20.0); Blood Urea Nitrogen 8 mg/dL (9-23); Glucose 93 mg/dL (74-106)
[2023-09-09 06:37] LABS: INR 1.19 (0.9-1.15); Partial Thromboplastin Time 27.7 SEC (24.5-34.5); Prothrombin Time 12.5 sec (9.3-11.8)
[2023-09-09] MEDS ORDERED: SODIUM CHLORIDE LOCK 10 ML ONE (07:08)
[2023-09-09] MEDS ORDERED: MIDAZOLAM HCL 2MG/2ML 2ml VIAL (1mg/ml) ONE ×2 (07:08→07:15)
[2023-09-09] MEDS ORDERED: fentaNYL CITRATE 100 MCG/2 ML VL ONE ×2 (07:08→07:15)
[2023-09-09] MEDS ORDERED: KETAMINE 50mg/ML 1ml syringe ONE ×2 (07:09→07:15)
[2023-09-09] MEDS ORDERED: HYDROmorphone HCL 2 MG/ML VL/or syr ONE (07:15)
[2023-09-09] MEDS ORDERED: ONDANSETRON HCL 4 MG/2 ML VIAL ONE (07:16)
[2023-09-09] MEDS: PROPOFOL 100 ML IV ONE (07:16)
[2023-09-09] MEDS ORDERED: DexAMETHasone SOD PHOS 10MG/1ML VIAL INJ ONE (07:16)
[2023-09-09] MEDS ORDERED: ePHEDrine SULFATE 50 MG/ML AMP ONE (07:16)
[2023-09-09] MEDS ORDERED: ROCURONIUM 10MG/ML 10ML VIAL IV ONE (07:16)
[2023-09-09] MEDS ORDERED: GLYCOPYRROLATE 0.2 MG/ML 1ML VIAL ONE (07:16)
[2023-09-09] MEDS: TRANEXAMIC ACID 20 ML ONE (08:15)
[2023-09-09] MEDS ORDERED: ceFAZolin 1GM VL ONE (08:16)
[2023-09-09] MEDS: ceFAZolin 2 GM/D5W50ml 50 ML IV ONE (08:30)
[2023-09-09] MEDS: levoFLOXacin 750MG 150 ML IV ONE (08:40)
[2023-09-09] MEDS: LIDOCAINE W/ EPINEPHRINE 1% 20ML VIAL ONE (09:00)
[2023-09-09] MEDS ORDERED: PROPOFOL 10 MG/ML 20 ML IV ONE (09:42)
[2023-09-09] MEDS ORDERED: SUGAMMADEX 200mg/2ml Vial (100MG/ML) IV ONE ×2 (10:27→11:06)
[2023-09-09] MEDS ORDERED: ONDANSETRON HCL 4 MG/2 ML VIAL IV PRN (10:45)
[2023-09-09] MEDS ORDERED: HYDROmorphone HCL 2 MG/ML VL/or syr IV PRN (11:30)
[2023-09-09] MEDS: ONDANSETRON HCL 4 MG/2 ML VIAL IV ONE (11:57)
[2023-09-09] MEDS: OXYCODONE W/ ACETAMINOPHEN 5/325MG TABLET PO ONE (12:16)
[2023-09-09] MEDS ORDERED: CYCLOBENZAPRINE HCL 10 MG TAB PO SCH (14:00)
[2023-09-09] MEDS: VANCOMYCIN 1GM/200ML 200 ML IV SCH (15:00)
[2023-09-09] MEDS: HYDROcodone-ACET 10/325MG TAB PO PRN (15:42)
[2023-09-09] MEDS: D5W/SOD CHLO 0.9% 1,000 ML IV SCH (19:32)
[2023-09-09] MEDS: ceFAZolin 1GM/50ML 50 ML IV SCH (19:36)
[2023-09-09] MEDS: CARISOPRODOL 350 MG TAB PO PRN (21:09)
[2023-09-09] MEDS: DOCUSATE SOD 100 MG CAP PO SCH (21:45)
[2023-09-10] VITALS (8 sets, daily range): BP systolic 128–144; BP diastolic 63–83; PULSE 77–109; RESP 14–18; TEMP 98.2–98.8; O2SAT 94–99
[2023-09-10 06:05] LABS: Anion Gap 8 (5-15); Carbon Dioxide 21 mmol/L (20-30); Chloride 111 mmol/L (98-107); Potassium 4.3 mmol/L (3.5-5.1); Sodium 140 mmol/L (136-145)
[2023-09-10 06:06] LABS: Calcium 9.2 mg/dL (8.7-10.4)
[2023-09-10 06:11] LABS: Blood Urea Nitrogen 5 mg/dL (9-23); Glucose 107 mg/dL (74-106)
[2023-09-10] MEDS: MORPHINE SULFATE INJ 2 MG/ml SYRG IV PRN (20:56)
[2023-09-11 01:08] VITALS: BP 133/82; PULSE 83; RESP 18; TEMP 98.5; O2SAT 97
[2023-09-11 05:00] VITALS: BP 143/91; PULSE 95; RESP 18; TEMP 98.6; O2SAT 93
[2023-09-11 09:00] VITALS: BP 132/68; PULSE 97; RESP 14; TEMP 98.4; O2SAT 96
[2023-09-11 13:00] VITALS: BP 143/82; PULSE 90; RESP 16; TEMP 98.2; O2SAT 96
[2023-09-11] MEDS: LORazepam 2MG/ML-1ML VIAL IV ONE ×2 (14:49)
[2023-09-11 17:00] VITALS: BP 133/78; PULSE 95; RESP 16; TEMP 97.8; O2SAT 95
[2023-09-11 21:00] VITALS: BP 144/83; PULSE 88; RESP 20; TEMP 98.4; O2SAT 98
[2023-09-12 01:00] VITALS: BP 164/99; PULSE 90; RESP 20; TEMP 98.1; O2SAT 96
[2023-09-12 05:00] VITALS: BP 150/90; PULSE 89; RESP 20; TEMP 97.9; O2SAT 96
[2023-09-12 08:47] VITALS: BP 123/83; PULSE 93; RESP 20; TEMP 98.3; O2SAT 98
[2023-09-12 12:46] VITALS: BP 126/81; PULSE 83; RESP 20; TEMP 98.4; O2SAT 93
[2023-09-12 17:41] VITALS: BP 112/66; PULSE 94; RESP 20; TEMP 98.6; O2SAT 99
[2023-09-12 21:00] VITALS: BP 143/85; PULSE 95; RESP 22; TEMP 98.9; O2SAT 97
[2023-09-13 01:00] VITALS: BP_SYST 136; BP_SYST 155; BP_DIAS 64; BP_DIAS 80; PULSE 66; PULSE 93; RESP 18; RESP 22; TEMP 97.8; TEMP 99; O2SAT 94; O2SAT 97
[2023-09-13 05:00] VITALS: BP 137/74; PULSE 78; RESP 20; TEMP 98.3; O2SAT 96
[2023-09-13 08:54] VITALS: BP 133/76; PULSE 94; RESP 20; TEMP 98.2; O2SAT 97
[2023-09-13 13:00] VITALS: BP 144/84; PULSE 85; RESP 20; TEMP 97.5; O2SAT 96
[2023-09-13 17:37] VITALS: BP 138/84; PULSE 85; RESP 20; TEMP 98; O2SAT 97
[2023-09-13 21:00] VITALS: BP 132/78; PULSE 89; RESP 20; TEMP 97.9; O2SAT 96
[2023-09-13] MEDS: CHOLECALCIFEROL (VITD3) 1,000UNIT=25mCg TAB PO ONE (22:56)
[2023-09-14] VITALS (8 sets, daily range): BP systolic 129–149; BP diastolic 78–88; PULSE 75–100; RESP 18–20; TEMP 36.6; O2SAT 96–99
[2023-09-14] MEDS: CHOLECALCIFEROL (VITD3) 1,000UNIT=25mCg TAB PO SCH (09:16)
[2023-09-14] MEDS: METOPROLOL SUCCINATE XL 50 MG TAB PO SCH (09:16)
[2023-09-14] MEDS ORDERED: HYDR-4798 PO (11:07)
[2023-09-14] MEDS: ACETAMINOPHEN 325 MG TAB PO PRN (16:39)
== END 2023-09-14 20:50 | disposition home health service (06) | DRG 454 ==
LOC: ER 18:10 → TELE 23:57 → TELE-WESTW 09-05 02:57 → WEST WING 09-13 00:59
PROVIDERS: ADMIT Nurse Practitioner Family; ATTEND Internal Medicine
PROC: 01NB0ZZ Release Lumbar Nerve, Open Approach (ICD-10-PCS; 2023-09-09)
PROC: 00NY0ZZ Release Lumbar Spinal Cord, Open Approach (ICD-10-PCS; 2023-09-09)
PROC: 0SG00AJ Fusion of Lumbar Vertebral Joint with Interbody Fusion Device, Posterior Approach, Anterior Column, Open Approach (ICD-10-PCS; 2023-09-09)
PROC: 4A11X4G Monitoring of Peripheral Nervous Electrical Activity, Intraoperative, External Approach (ICD-10-PCS; 2023-09-09)
PROC: 0SG0071 Fusion of Lumbar Vertebral Joint with Autologous Tissue Substitute, Posterior Approach, Posterior Column, Open Approach (ICD-10-PCS; principal; 2023-09-09 07:39)
DX: M48.062 Spinal stenosis, lumbar region with neurogenic claudication (principal); L03.116 Cellulitis of left lower limb; Z68.41 Body mass index [BMI] 40.0-44.9, adult; I10 Essential (primary) hypertension; F17.210 Nicotine dependence, cigarettes, uncomplicated; E78.5 Hyperlipidemia, unspecified; K21.9 Gastro-esophageal reflux disease without esophagitis; K59.00 Constipation, unspecified; E66.01 Morbid (severe) obesity due to excess calories; E55.9 Vitamin D deficiency, unspecified; M48.07 Spinal stenosis, lumbosacral region; M51.16 Intervertebral disc disorders with radiculopathy, lumbar region; Z82.49 Family history of ischemic heart disease and other diseases of the circulatory system
CPT/HCPCS: 36415; 72100; 73721; 76000; 80048; 80053; 80202; 81001; 82550; 82565; 83036; 85025; 85610; 85652; 85730; 86141; 86850; 86900; 86901; 87081; 93970; 97163; G0378; J0690; J1100; J1956; J2250; J2405; J2704; J7042

== ENCOUNTER → 2023-09-22 | Outpatient (CLI) | payer BC ==
[~2023-09-22] MED LIST changes: +CHOL1TAB30 PO; +DOCU-94 PO; +DOXY100C4 PO; +ENO40SY SUBCUT; +ERGO1CAP23 PO; +GABA-1308 PO; +HYDR-4798 PO; +LACT10SO3 PO; +LIDO4PAD8 EX; +PANT40T PO
[2023-09-22 12:24] LABS: Basophils # (auto) 0 10 ^3/uL (0-0.2); Basophils % (auto) 0.6 % (0.0-2.0); Eosinophils # (auto) 0.1 10 ^3/uL (0-0.8); Eosinophils % (auto) 2.6 % (0.0-7.0); Hematocrit 39.8 % (41.0-53.0); Hemoglobin 13.4 g/dL (13.5-17.5); Lymphocytes # (auto) 1.5 10 ^3/uL (0.4-5.4); Lymphocytes % (auto) 32.5 % (10.0-50.0); Mean Corpuscular Hemoglobin 31.7 pg (28.0-32.0); Mean Corpuscular Hgb Conc. 33.6 g/dL (32.0-36.0); Mean Corpuscular Volume 94.3 fL (80.0-100.0); Monocytes # (auto) 0.4 10 ^3/uL (0-1.3); Monocytes % (auto) 9.2 % (0.0-12.0); Neutrophils # (auto) 2.5 10 ^3/uL (1.6-8.6); Neutrophils % (auto) 55.1 % (37.0-80.0); Nucleated Red Blood Cells % 0.1 %; Red Blood Cells 4.22 10^6/uL (4.5-5.90); Red Cell Distribution Width 13.6 % (11.8-14.3); White Blood Cell 4.6 10^3/uL (4.4-10.8)
[2023-09-22 12:46] LABS: Alanine Aminotransferase 59 U/L (7-40); Albumin 4.4 g/dL (3.2-4.8); Alkaline Phosphatase 65 U/L (46-116); Anion Gap 8 (5-15); Aspartate Aminotransferase 20 U/L (13-40); BUN/Creatinine Ratio 9.9 (10.0-20.0); Bilirubin, Total 0.7 mg/dL (0.2-1.0); Blood Urea Nitrogen 10 mg/dL (9-23); CRP High Sensitivity < 0.02 mg/dL (<1.0); Calcium 10.1 mg/dL (8.7-10.4); Carbon Dioxide 23 mmol/L (20-30); Chloride 111 mmol/L (98-107); Glucose 101 mg/dL (74-106); Potassium 3.7 mmol/L (3.5-5.1); Sodium 142 mmol/L (136-145); Total Protein 7.1 g/dL (5.7-8.2)
[2023-09-22 13:05] LABS: Erythrocyte Sedimentation Rate 2 mm/hr (0-20)
== END | disposition home or self-care (01) ==
LOC: LAB 12:06
PROVIDERS: ATTEND Internal Medicine
DX: M25.473 Effusion, unspecified ankle (principal)
CPT/HCPCS: 36415; 80053; 85025; 85652; 86141